=== PATIENT | male | born 1965 | race Caucasian/White ===

== ENCOUNTER 2018-02-03 16:32 | Inpatient (IN) | END 2018-02-10 16:03 | disposition home or self-care (01) | DRG 593 ==

== ENCOUNTER 2018-03-09 20:02 | Inpatient (IN) | END 2018-03-22 18:10 | disposition home or self-care (01) | DRG 580 ==

== ENCOUNTER 2018-04-03 17:55 | Inpatient (IN) | END 2018-04-08 16:40 | disposition home health service (06) | DRG 300 ==